=== PATIENT | female | born 1995 | race Caucasian/White ===

== ENCOUNTER 2023-05-17 10:30 | Emergency (ER) | payer OTHER, SELFPAY ==
--- NOTE | ~2023-05-17 | US_ITS ---
EXAMINATION: ULTRASOUND PELVIC, COMPLETE CLINICAL INFORMATION: Positive test. Vaginal bleeding. COMPARISON: None. TECHNIQUE: Transvaginal: Used to better visualize pelvic structures Transabdominal: Not adequate for visualization Spectral Doppler and color Doppler exam was utilized. LMP: 04/10/2023. Gestational age by LMP is 5 weeks 2 days. OSCAR 01/15/2024 Beta-hCG 137 05/17/2023 FINDINGS: UTERUS: No intrauterine gestational sac or fluid collection. Endometrial thickness 0.8 cm. ADNEXA: Ovarian vascularity:Doppler demonstrates both arterial and venous vascular flow in the right and left ovary. No evidence of ovarian torsion. Right Ovary: 3 x 1.6 x 1.9 cm. 1.2 cm proximal luteum cyst. Left Ovary: 3.1 x 1.3 x 1.8 cm. Cul-de-sac: No Fluid US/US OB pelvic and transvaginal IMPRESSION: No intrauterine gestation. Ectopic cannot be excluded. Consider follow-up serial beta-HCG levels and follow-up ultrasound in 2-3 weeks.
[2023-05-17 10:46] VITALS: BP 109/45; PULSE 86; RESP 16; TEMP 37.4; O2SAT 100; BMI 20.5
[2023-05-17 11:12] LABS: Hematocrit 37.4 % (37.0-47.0); Hemoglobin 12.2 g/dl (12.0-16.0); Mean Corpuscular HGB Conc 32.6 g/dl (31.0-35.0); Mean Corpuscular Hemoglobin 29.6 pg (27.0-33.0); Mean Corpuscular Volume 90.8 fL (80.0-98.0); Mean Platelet Volume 10.4 fL (9.4-12.3); Platelet Count 215 X10*3/uL (160-400); Red Blood Count 4.12 X10*6/uL (4.20-5.50); Red Cell Distribution Width 12.7 % (11.0-16.0); White Blood Count 5.5 X10*3/uL (4.8-10.8)
[2023-05-17 11:34] LABS: Alanine Aminotransferase 14 U/L (0-31); Alkaline Phosphatase 44 U/L (39-117); Anion Gap 11 (12-20); Aspartate Amino Transferase 19 U/L (5-31); Bilirubin Total 0.4 mg/dL (0.0-1.0); Blood Urea Nitrogen 14 mg/dL (9-16); Calcium 9.7 mg/dL (8.4-10.2); Carbon Dioxide 23 mmol/L (22-29); Chloride 108 mmol/L (96-108); Creatinine Clr Calc Pharmacy 88.4; Estimated Glomerular Filt Rate > 60; Glucose Random 79 mg/dL (60-115); HCG Quantitative 194 mIU/mL; Potassium 4.5 mmol/L (3.3-5.1); Sodium 137 mmol/L (135-145); Total Protein 6.8 g/dL (6.5-8.0)
[2023-05-17 14:20] VITALS: BP 111/64; PULSE 84; RESP 18; O2SAT 100
[2023-05-17 14:45] LABS: Appearance Urine Clear; Color Urine Yellow; Glucose Urine UA Negative (Negative); Leukocyte Esterase Urine Negative (Negative); Nitrite Urine Negative (Negative); PH 5.5 (5.0-9.0); Specific Gravity - Urine >= 1.030 (1.005-1.025); Urine Blood Negative (Negative); Urine Ketones Negative (Negative); Urine Protein Negative (Neg-Trace)
--- NOTE | 2023-05-17 16:19 | ED.PREGNANCY ---
HPI - General Chief complaint: Vaginal Bleeding Stated complaint: Spotting 3-4Weeks Time Seen by Provider: 05/17/23 14:19 Source: patient Mode of arrival: ambulatory Limitations: no limitations History of Present Illness HPI Narrative: 28 year old female w/ no significant pmhx presents to the ED today w/ complaints of spotting since this morning. Her last known menstrual cycle was 04/10. She took a urine test on 05/13 that was positive. she reports this is the 1st time she has ever been she has never been in the past and never had an miscarriage or . She is . Denies trauma/injury and STDs. She states the spotting has been persistent throughout the course of the day and was present in her underwear this AM & the toilet paper when she wipes, she also states that the color of the blood has darkened throughout the day. She denies any fever, chills, nausea, vomiting, abdominal pain, Back pain, passing of clots, or profuse amounts of bleeding. MD Complaint: vaginal bleeding Onset (ago): hour(s) Pain Consistency: constant Associated symptoms: denies other symptoms Vaginal discharge: none Vaginal bleeding: light Date of Last Menstrual Period: 04/10/23 Patient : Yes care: none Related Data : 1 Para: 0 Total number of abortions (spontaneous and elective): 0 Allergies Allergy/AdvReac Type Severity Reaction Status Date / Time No Known Allergies Allergy Unverified 05/17/23 10:46 Review of Systems Review of Systems: Constitutional : No Fever, No Chills ENT/Mouth : No sore throat, No Rhinorrhea Cardiovascular : No Chest Pain, No SOB Respiratory : No Cough, No Sputum, No Wheezing Gastrointestinal : No Nausea, No Vomiting, No Diarrhea, No abdominal pain, Genitourinary : (+) irregular bleeding, No Dysuria, No Urinary Frequency, No pelvic pain Musculoskeletal : No Myalgias Skin : No rash Neuro : No Weakness, No Headache Yes all other systems are reviewed and are negative PMFSH Past Medical History Attestation statement: The following information was validated with the patient. Source: old records reviewed and nursing notes reviewed : 1 Para: 0 Total number of abortions (spontaneous and elective): 0 Date of Last Menstrual Period: 04/10/23 Social History Social History Advance Directives: No Advance Directives Information Provided: No Patient : Yes Physical Exam Vital Signs: Vital Signs: Last Vital Signs Temp 99.4 F 05/17/23 10:46 Pulse 84 05/17/23 14:20 Resp 18 05/17/23 14:20 BP 111/64 05/17/23 14:20 Pulse Ox 100 05/17/23 14:20 O2 Del Method Room Air 05/17/23 14:20 BMI result Body Mass Index 20.5 vital signs have been reviewed as normal and appeared to be correct. Blood pressure normal. Heart rate normal. Respiration rate normal. Temperature normal. Oxygen saturation normal. Appearance: Alert. Oriented X3. No acute distress. Head: Normal external exam. Normocephalic. Atraumatic. Eyes: PERRLA. EOMI. Conjunctiva and sclera normal. Eyelids normal. Respiratory: No respiratory distress. Painless inspiration. Breath sounds normal. Abdomen: Soft and nontender. : Supervised by David POMPA. (+) maroon colored vaginal discharge noted. Normal external appearance of urethra. No lesions/lacerations or tenderness noted. Speculum exam normal appearance/palpation of vagina. Otherwise no vaginal erythema. No foreign bodies noted. No active bleeding noted. No tissue present in vagina. No vaginal mass noted. No vaginal swelling noted. Normal appearance of cervix. Cervical os is closed. No cervical lesion/mass. No Bartholin cyst noted. No cervical motion tenderness noted. Skin: Skin warm and dry. Normal skin color. Normal skin turgor. No rashes/lesions/lacerations noted. Extremities: No lower extremity edema. Extremities exhibit normal range of motion. Extremities nontender. Neuro: Oriented X 3. No motor deficit. No sensory deficit. Reflexes normal. Course Course Course Narrative: patient is well appearing, non-toxic, and vital signs are reassuring. Physical exam reveals scant amount of vaginal bleeding without CMT or adnexal tenderness/enlargement. Lab work is reassuring with no signs of anemia, infection, electrolyte abnormality or bleeding tendency. Urinalysis only shows large blood, will wait for urine culture. ultrasound was unable to see into urine unable to rule out ectopic . Labs reviewed and labs are within normal limits. Beta quant is 194. Pending gonorrhea/ chlamydia/ bacterial vaginosis/ Trichomonas and yeast at this time although patient does not have any thoughts of this and she does not have any other symptoms other than the vaginal bleeding therefore will await results. patient is a positive for blood type. I discussed this case with OBGYN Dr. Simpson review reported that the patient can be discharged and instructions to return in 48 hours for repeat evaluation in the ER he does want her to check in as an ER patient for repeat evaluation and serum quant levels. Then she can follow up with him sometime next week. Patient will be discharged home with diagnosis of metrorrhagia and dysfunctional uterine bleeding. Medical Decision Making Medical Decision Making [facility] Narrative: 28 year old female w/ no significant pmhx presents to the ED today w/ complaints of spotting since this morning. On exam her VSS and NAD, no signs of trauma or injury noted, and no red flag signs/symptoms. We discussed the possibility of this being normal spotting vs. a threatened . Low likelihood of an STD per pt but swabs were still sent out.?Unlikely an ectopic , completed , or an inevitable . Plan: Serum HCG in 48h, establish care & follow up w/ OBGYN, STD testing Differential Diagnosis Differential Diagnoses: The differential diagnosis associated with the presentation includes see above/course Consult Healthcare Provider Management of the patient was discussed with: Viscose Cellar Charge Hand ( OBGYN Dr. Simpson ) Lab Data [facility] Lab Attestation statement: I reviewed the patient's lab results. 05/17/23 11:04 05/17/23 11:04 Labs: Lab Results 05/17/23 05/17/23 05/17/23 Range/Units 11:04 11:04 11:04 WBC 5.5 (4.8-10.8) X10*3/uL RBC 4.12 L (4.20-5.50) X10*6/uL Hgb 12.2 (12.0-16.0) g/dl Hct 37.4 (37.0-47.0) % MCV 90.8 (80.0-98.0) fL MCH 29.6 (27.0-33.0) pg MCHC 32.6 (31.0-35.0) g/dl RDW 12.7 (11.0-16.0) % Plt Count 215 (160-400) X10*3/uL MPV 10.4 (9.4-12.3) fL Absolute Nucleated RBC 0.000 (0.0-0.012) X10*3/uL Nucleated RBC % (auto) 0.0 (0.0-0.2) /100WBC Sodium 137 (135-145) mmol/L Potassium 4.5 (3.3-5.1) mmol/L Chloride 108 (96-108) mmol/L Carbon Dioxide 23 (22-29) mmol/L Anion Gap 11 L (12-20) BUN 14 (9-16) mg/dL Creatinine 0.81 (0.5-1.4) mg/dL Estim Creat Clear Calc 88.4 Estimated GFR > 60 Random Glucose 79 (60-115) mg/dL Calcium 9.7 (8.4-10.2) mg/dL Total Bilirubin 0.4 (0.0-1.0) mg/dL AST 19 (5-31) U/L ALT 14 (0-31) U/L Alkaline Phosphatase 44 (39-117) U/L Total Protein 6.8 (6.5-8.0) g/dL Albumin 4.0 (3.5-5.0) g/dL Beta HCG, Quant 194 mIU/mL Urine Color Urine Appearance Urine pH (5.0-9.0) Ur Specific [place] (1.005-1.025) Urine Protein (Neg-Trace) mg/dL Urine Glucose (UA) (Negative) mg/dL Urine Ketones (Negative) mg/dL Urine Blood (Negative) Urine Nitrite (Negative) Ur Leukocyte Esterase (Negative) Blood Type A Positive 05/17/23 Range/Units 14:23 WBC (4.8-10.8) X10*3/uL RBC (4.20-5.50) X10*6/uL Hgb (12.0-16.0) g/dl Hct (37.0-47.0) % MCV (80.0-98.0) fL MCH (27.0-33.0) pg MCHC (31.0-35.0) g/dl RDW (11.0-16.0) % Plt Count (160-400) X10*3/uL MPV (9.4-12.3) fL Absolute Nucleated RBC (0.0-0.012) X10*3/uL Nucleated RBC % (auto) (0.0-0.2) /100WBC Sodium (135-145) mmol/L Potassium (3.3-5.1) mmol/L Chloride (96-108) mmol/L Carbon Dioxide (22-29) mmol/L Anion Gap (12-20) BUN (9-16) mg/dL Creatinine (0.5-1.4) mg/dL Estim Creat Clear Calc Estimated GFR Random Glucose (60-115) mg/dL Calcium (8.4-10.2) mg/dL Total Bilirubin (0.0-1.0) mg/dL AST (5-31) U/L ALT (0-31) U/L Alkaline Phosphatase (39-117) U/L Total Protein (6.5-8.0) g/dL Albumin (3.5-5.0) g/dL Beta HCG, Quant mIU/mL Urine Color Yellow Urine Appearance Clear Urine pH 5.5 (5.0-9.0) Ur Specific [place] >= 1.030 H (1.005-1.025) Urine Protein Negative (Neg-Trace) mg/dL Urine Glucose (UA) Negative (Negative) mg/dL Urine Ketones Negative (Negative) mg/dL Urine Blood Negative (Negative) Urine Nitrite Negative (Negative) Ur Leukocyte Esterase Negative (Negative) Blood Type Independent Interpretation I performed an independent interpretation of an: Ultrasound Interpretation: Ultrasound reviewed by myself this is my independent interpretation agreeable radiology report Radiology Impression Discussion of test interpretation with radiology: I have reviewed the radiologist's reading. Radiologist Impression: [place] [id number] Ultrasound Report Signed Patient: Juan Luis Mendoza MR#: [id number] : 1995 Acct:[id number] Age/Sex: 28 / F ADM Date: 05/17/23 Loc: HO.ED Attending Dr: Ordering Physician: Ana Quiñonez Date of Service: 05/17/23 Procedure(s): US OB pelvic and transvaginal Accession Number(s): [id number] cc: Ana Quiñonez~ EXAMINATION: ULTRASOUND PELVIC, COMPLETE CLINICAL INFORMATION: Positive test. Vaginal bleeding. COMPARISON: None. TECHNIQUE: Transvaginal: Used to better visualize pelvic structures Transabdominal: Not adequate for visualization Spectral Doppler and color Doppler exam was utilized. LMP: 04/10/2023. Gestational age by LMP is 5 weeks 2 days. OSCAR 01/15/2024 Beta-hCG 137 05/17/2023 FINDINGS: UTERUS: No intrauterine gestational sac or fluid collection. Endometrial thickness 0.8 cm. ADNEXA: Ovarian vascularity:Doppler demonstrates both arterial and venous vascular flow in the right and left ovary. No evidence of ovarian torsion. Right Ovary: 3 x 1.6 x 1.9 cm. 1.2 cm proximal luteum cyst. Left Ovary: 3.1 x 1.3 x 1.8 cm. Cul-de-sac: No Fluid US/US OB pelvic and transvaginal IMPRESSION: No intrauterine gestation. Ectopic cannot be excluded. Consider follow-up serial beta-HCG levels and follow-up ultrasound in 2-3 weeks. External Record Review External record reviewed: Inpatient record, Office record, Outpatient record, Prior outpatient labs, Prior outpatient radiology, Primary care record and Outside ED record all prior lab/ imaging/notes that are accessible in our system reviewed by myself Discharge Plan Discharge Clinical Impression: Vaginal bleeding, Threatened , Positive blood test Patient Disposition: Home, Self-Care Instructions: Threatened Miscarriage (ED), (ED) Additional Instructions: we need you to return back on Saturday for repeat evaluation and serum quant you will need to check in as an ER patient Dr. Simpson to be evaluated by provider. If he develops any fevers, abdominal pain, vaginal discharge or worsening vaginal bleeding or any dizziness you will need to return before Saturday otherwise return on Saturday Referrals: Ana Quiñonez PA [Emergency Midlevel Provider] - 05/19/23 8:00 am (You will need to return on Saturday for repeat evaluation and serum quant levels you will need to check in to be evaluated by an actual provider per Dr. Simpson he wants to to be evaluated again) Stand Alone Forms: Work/School Release
[2023-05-17 17:31] VITALS: BP 108/69; PULSE 88; RESP 16; O2SAT 99
[2023-05-17 18:12] LABS: CT PCR NOT DETECTED (Not Detect.); NG PCR NOT DETECTED (Not Detect.)
--- NOTE | 2023-05-17 18:45 | PM.GYNCN ---
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 The patient had a positive urine test on 05/13.? No other associated symptoms no pelvic pain or vaginal discharge or any other concerns. 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0-9.0) Ur Specific [place] >= 1.030 H (1.005-1.025) Urine Protein Negative (Neg-Trace) mg/dL Urine Glucose (UA) Negative (Negative) mg/dL Imaging US - abdomen: Radiologist's impression: ITS Impressions Pelvic/Transvag US 05/17/23 14:52 IMPRESSION: No intrauterine gestation. Ectopic cannot be excluded. Consider follow-up serial beta-HCG levels and follow-up ultrasound in 2-3 weeks. Assessment and Plan (1) Spotting in first trimester: Status: Acute Plan The following was discussed with KIRSTIE Thomas: Differential diagnosis includes early , SAB IUP or ectopic. Recommend GC/chlamydia with BV panel and Trichomonas to be collected, HCG and follow-up emergency room visit in 48 hours. SAB/ectopic warnings to be given to the patient, she is to come back to emergency room in case of vaginal bleeding and or pelvic pain. Time Spent With Patient Time: Total time managing care of this patient today ____ minutes.
[2023-05-18 10:35] LABS: BV Int Neg Control Negative (Negative); BV Int Pos Control Positive (Positive)
== END 2023-05-17 17:35 | disposition home or self-care (01) ==
PROVIDERS: Physician Assistant Medical; Emergency Provider Emergency Medicine Emergency Medical Services; PCP Nurse Practitioner Family
DX: O26.851 Spotting complicating pregnancy, first trimester (principal); O20.0 Threatened abortion; O26.891 Other specified pregnancy related conditions, first trimester; N89.8 Other specified noninflammatory disorders of vagina; Z3A.01 Less than 8 weeks gestation of pregnancy
CPT/HCPCS: 0353U; 36415; 76801; 76817; 80053; 81003; 84702; 85027; 86900; 86901; 87480; 87510; 87660; 99284

== ENCOUNTER → 2023-05-17 15:13 | Outpatient (BNV) | payer OTHER, SELFPAY | PROVIDERS: Emergency Provider Emergency Medicine Emergency Medical Services; PCP Nurse Practitioner Family; Visit Provider Obstetrics & Gynecology | DX: O26.851 Spotting complicating pregnancy, first trimester (principal) | CPT/HCPCS: 99283 ==

== ENCOUNTER 2023-05-19 09:02 | Outpatient (REF) | payer OTHER, SELFPAY ==
[2023-05-19 09:59] LABS: HCG Quantitative 79 mIU/mL
== END 2023-05-19 09:03 | disposition home or self-care (01) ==
LOC: HO.LAB 09:02
PROVIDERS: Emergency Medicine Emergency Medical Services; Visit Provider Obstetrics & Gynecology
DX: O26.851 Spotting complicating pregnancy, first trimester (principal)
CPT/HCPCS: 36415; 84702

== ENCOUNTER 2023-05-20 18:46 | Emergency (ER) | payer OTHER, SELFPAY ==
[2023-05-20 19:11] VITALS: BP 114/71; PULSE 84; RESP 18; TEMP 37.2; O2SAT 100; BMI 19.1
--- NOTE | 2023-05-20 19:13 | ED.FEMALEGU ---
HPI - Female Genitourinary General Chief complaint: Vaginal Bleeding Stated complaint: vaginal bleeding,cramping Time Seen by Provider: 05/20/23 23:56 Source: patient Mode of arrival: ambulatory Limitations: no limitations History of Present Illness HPI Narrative: Patient 28 years old primary about 5 weeks 5 days was seen here on 05/17 for vaginal spotting, hCG was 194, no IUP seen on ultrasound, spotting continues and now patient bleeding heavy with blood clots HCG done on 05/19 was 79 and today was 51 complaining of lower abdominal cramping Related Data Previous Rx's Medication Instructions Recorded tramadol 50 mg tablet 50 mg PO Q6H PRN pain #20 tabs 05/21/23 Allergies Allergy/AdvReac Type Severity Reaction Status Date / Time No Known Allergies Allergy Verified 05/20/23 19:16 Review of Systems Review of Systems: Yes all other systems are reviewed and are negative [facility] Social History Social History Alcohol intake: never Advance Directives: No Advance Directives Information Provided: Yes Physical Exam Vital Signs: Vital Signs: Last Vital Signs Temp 98.6 F 05/21/23 00:02 Pulse 80 05/21/23 00:02 Resp 20 05/21/23 00:02 BP 123/69 05/21/23 00:02 Pulse Ox 100 05/21/23 00:02 O2 Del Method Room Air 05/21/23 00:02 BMI result Body Mass Index 19.1 Appearance: Alert. Oriented X3. No acute distress. Eyes: no pallor ENT: Pharynx normal. Oral Mucosa moist Neck: Normal inspection. Neck supple. CVS: Normal heart rate and rhythm. Pulses normal. Respiratory: No respiratory distress. Equal air entry bilateral, Abdomen: Soft mild suprapubic tenderness Bowel sounds are present, no mass palpable, Skin: Skin warm and dry. Normal skin color. Normal skin turgor. Neuro: Oriented X 3. No motor deficit. Course Course Course Narrative: RME: 28 year old female , LMP on 04/10, c/o spotting since Saturday now with dark red bleeding x today w/ cramping & nausea. denies d/c, vomiting. Patient was seen & tx in our ED 05/17 for similar sx, US at that time that did not see IUP, HCG was 194, & repeat HCG on 05/20 was 79. Labs, UA, repeat HCG ordered Full HPI, ROS and PE to be performed by primary ED provider. Medical Decision Making Medical Decision Making [facility] Narrative: Patient with decreasing hCG level from 194 to 51 in 3 days with vaginal bleeding likely a spontaneous no IUP seen 4 days ago no significant abdominal pain patient will be discharged advised to follow with Ob[facility] Lab Data MDM Lab Attestation statement: I reviewed the patient's lab results. 05/20/23 19:30 05/20/23 19:30 Labs: Lab Results 05/20/23 05/20/23 Range/Units 19:30 19:30 WBC 6.8 (4.8-10.8) X10*3/uL RBC 3.77 L (4.20-5.50) X10*6/uL Hgb 11.6 L (12.0-16.0) g/dl Hct 34.8 L (37.0-47.0) % MCV 92.3 (80.0-98.0) fL MCH 30.8 (27.0-33.0) pg MCHC 33.3 (31.0-35.0) g/dl RDW 12.7 (11.0-16.0) % Plt Count 216 (160-400) X10*3/uL MPV 10.6 (9.4-12.3) fL Immature Gran % (Auto) 0.4 (0.0-0.4) % Neut % (Auto) 66.5 (45-73) % Lymph % (Auto) 23.7 (20-40) % Atkinson % (Auto) 8.1 (2-11) % Eos % (Auto) 0.9 (0-4) % Baso % (Auto) 0.4 (0-2) % Lymph # (Auto) 1.6 (1.2-4.9) X10*3/uL [place]kinson # (Auto) 0.6 (0.1-1.2) X10*3/uL Eos # (Auto) 0.1 (0.0-0.4) X10*3/uL Baso # (Auto) 0.0 (0.0-0.2) X10*3/uL Abs Immat Gran (auto) 0.03 (0.00-0.03) X10*3/uL Absolute Neuts (auto) 4.5 (2.0-8.3) x10*3/uL Absolute Nucleated RBC 0.000 (0.0-0.012) X10*3/uL Nucleated RBC % (auto) 0.0 (0.0-0.2) /100WBC Sodium 141 (135-145) mmol/L Potassium 4.0 (3.3-5.1) mmol/L Chloride 111 H (96-108) mmol/L Carbon Dioxide 23 (22-29) mmol/L Anion Gap 11 L (12-20) BUN 14 (9-16) mg/dL Creatinine 0.81 (0.5-1.4) mg/dL Estim Creat Clear Calc 82.1 Estimated GFR > 60 Random Glucose 84 (60-115) mg/dL Calcium 8.9 D (8.4-10.2) mg/dL Lipase 37 (8-78) U/L Beta HCG, Quant 51 mIU/mL Discharge Plan Discharge Clinical Impression: Spontaneous miscarriage Patient Disposition: Home, Self-Care Instructions: Miscarriage (ED) Additional Instructions: Likely you have miscarriage Bleeding will continue the next 2 - 3 days with abdominal cramps Follow-up with OB G if any concerns Pain medication as prescribed Prescriptions: New tramadol 50 mg tablet 50 mg PO Q6H PRN (Reason: pain) Qty: 20 0RF
[2023-05-20 19:35] LABS: MANUAL DIFF FLAG NO
[2023-05-20 19:51] LABS: Basophils Percent Auto 0.4 % (0-2); Eosinophils Absolute Auto 0.1 X10*3/uL (0.0-0.4); Eosinophils Percent Auto 0.9 % (0-4); Hematocrit 34.8 % (37.0-47.0); Hemoglobin 11.6 g/dl (12.0-16.0); Imm Gran Abs Auto 0.03 X10*3/uL (0.00-0.03); Imm Gran Pct Auto 0.4 % (0.0-0.4); Lymphocytes Absolute Auto 1.6 X10*3/uL (1.2-4.9); Lymphocytes Percent Auto 23.7 % (20-40); Mean Corpuscular HGB Conc 33.3 g/dl (31.0-35.0); Mean Corpuscular Hemoglobin 30.8 pg (27.0-33.0); Mean Corpuscular Volume 92.3 fL (80.0-98.0); Mean Platelet Volume 10.6 fL (9.4-12.3); Monocytes Absolute Auto 0.6 X10*3/uL (0.1-1.2); Monocytes Percent Auto 8.1 % (2-11); Neutrophils Absolute Auto 4.5 x10*3/uL (2.0-8.3); Neutrophils Percent Auto 66.5 % (45-73); Platelet Count 216 X10*3/uL (160-400); Red Blood Count 3.77 X10*6/uL (4.20-5.50); Red Cell Distribution Width 12.7 % (11.0-16.0); White Blood Count 6.8 X10*3/uL (4.8-10.8)
[2023-05-20 19:56] LABS: Anion Gap 11 (12-20); Blood Urea Nitrogen 14 mg/dL (9-16); Calcium 8.9 mg/dL (8.4-10.2); Carbon Dioxide 23 mmol/L (22-29); Chloride 111 mmol/L (96-108); Creatinine Clr Calc Pharmacy 82.1; Estimated Glomerular Filt Rate > 60; Glucose Random 84 mg/dL (60-115); Lipase 37 U/L (8-78); Sodium 141 mmol/L (135-145)
[2023-05-20 19:57] LABS: HCG Quantitative 51 mIU/mL
[2023-05-21 00:02] VITALS: BP 123/69; PULSE 80; RESP 20; TEMP 37; O2SAT 100
[2023-05-21] MEDS: traMADoL HCL 50 MG TABLET PO (00:44)
== END 2023-05-21 00:53 | disposition home or self-care (01) ==
PROVIDERS: Physician Assistant; Emergency Provider Internal Medicine
DX: O03.9 Complete or unspecified spontaneous abortion without complication (principal); R10.2 Pelvic and perineal pain
CPT/HCPCS: 36415; 80048; 83690; 84702; 85025; 99283

== ENCOUNTER 2023-05-21 09:46 | Outpatient (REF) | payer OTHER, SELFPAY ==
[2023-05-21 11:02] LABS: HCG Quantitative 44 mIU/mL
== END 2023-05-21 09:47 | disposition home or self-care (01) ==
LOC: HO.LAB 09:46
PROVIDERS: PCP Nurse Practitioner Family; Visit Provider Obstetrics & Gynecology
DX: O26.851 Spotting complicating pregnancy, first trimester (principal)
CPT/HCPCS: 36415; 84702; 99212

== ENCOUNTER 2023-05-21 14:06 | Outpatient (AMB) | payer OTHER, SELFPAY ==
[2023-05-21 14:15] VITALS: BP 94/58; BMI 20.1
--- NOTE | 2023-05-21 14:15 | MHC.OFFVIS ---
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 The patient went to the emergency room on 05/17 at 5 in 5 weeks of gestation complaining of vaginal spotting. hCG was 194,? no IUP seen on ultrasound, the patient was seen in the emergency room on 05/20 after continuous spotting and vaginal bleeding heavy with blood clots, HCG done on 05/19 was 79 and repeated on 05/20 was 51 complaining of lower abdominal cramping. GC and chlamydia with BV panel were negative. Blood type is A positive The patient is doing well, minimal pelvic cramping no pain, and vaginal bleeding changing 1 pad overnight. H&H done yesterday at 18:30 was 11.6/24.8 [facility] Social History Alcohol intake: never Female Reproductive History Menstrual Date of last menstrual period: 04/10/23 control method: none Total pregnancies: 1 Ab spontaneous: 1 Date of last pap smear: 02/05/17 (negative) Review of Systems Const All systems reviewed & are unremarkable except as noted in HPI and below Physical Exam Vital Signs: Last Vital Signs BP 94/58 L 05/21/23 14:15 BMI result Body Mass Index 20.1 General: Yes no CVA tenderness External Female Exam: normal external appearance and normal appearance of the urethra Speculum Exam - Vagina: normal appearance of the vagina, normal palpation, no lesions and no masses Speculum Exam - Cervix: normal appearance of the cervix, normal palpation, no lesions, no masses, nontender and Other cervical findings present (Close cervix, no evidence of active vaginal bleeding) Bimanual exam- vagina & uterus: normal bimanual exam, normal palpation, uterine size normal, normal palpation, uterine shape normal, No Cervical tenderness present and non-tender Bimanual Exam- Adnexa, other: normal adnexae Back/Spine/Pelvis Back: no CVA tenderness Assessment & Plan Assessment & Plan (1) Spontaneous miscarriage: Code(s): O03.9 - Complete or unspecified spontaneous without complication Plan: Discussed with the patient the results of her hCG dropping, consistent with spontaneous . Signs and symptoms of SAB and ectopic were given to the patient she is to call or go to the emergency room in case of heavy vaginal bleeding, pelvic pain, fever above 100.4, hCG to be repeated in 48 hours and and schedule follow-up appointment afterwards. All questions answered, the patient verbalized understanding and agreed with the plan. Orders: Orders HCG Quantitative 2 Days O03.9 - Complete or unspecified spontaneous without complication Coding Level of Care Code Est Pt Level 3 (92639) Diagnoses Spontaneous miscarriage O03.9
== END 2023-05-21 14:53 | disposition home or self-care (01) ==
LOC: HO.HWS 14:06
PROVIDERS: PCP Nurse Practitioner Family; Visit Provider Obstetrics & Gynecology
DX: O03.9 Complete or unspecified spontaneous abortion without complication (principal)
CPT/HCPCS: 99213

== ENCOUNTER 2023-05-21 14:35 | Outpatient (REF) | payer OTHER, SELFPAY | END 2023-05-21 14:36 | disposition home or self-care (01) | LOC: HO.LNP 14:35 | PROVIDERS: Visit Provider Obstetrics & Gynecology | DX: Z13.89 Encounter for screening for other disorder (principal) ==

== ENCOUNTER 2023-05-23 08:00 | Outpatient (REF) | payer OTHER, SELFPAY ==
[2023-05-23 09:46] LABS: HCG Quantitative 23 mIU/mL
== END 2023-05-23 08:01 | disposition home or self-care (01) ==
LOC: HO.LAB 08:00
PROVIDERS: PCP Nurse Practitioner Family; Visit Provider Obstetrics & Gynecology
DX: O03.9 Complete or unspecified spontaneous abortion without complication (principal)
CPT/HCPCS: 36415; 84702; 99212

== ENCOUNTER 2023-05-23 08:03 | Outpatient (REF) | payer OTHER, SELFPAY | END 2023-05-23 08:04 | disposition home or self-care (01) | LOC: HO.LNP 08:03 | PROVIDERS: Visit Provider Obstetrics & Gynecology | DX: Z13.89 Encounter for screening for other disorder (principal) ==

== ENCOUNTER 2023-05-23 11:38 | Outpatient (AMB) | payer OTHER, SELFPAY ==
[2023-05-23 11:41] VITALS: BP 100/60; BMI 20.1
--- NOTE | 2023-05-23 11:41 | MHC.OFFVIS ---
Intake Vital Signs 05/23/23 11:41 Height 5 ft 5 in Weight 121 lb BMI 20.1 BP 100/60 Intake Visit Reasons: HCG follow up Allergies No Known Allergies Allergy (Verified 05/23/23 11:42) HPI HPI Comments History of Present Illness Details Presenting for follow-up with no complaints. Vaginal bleeding and pelvic cramping has resolved. HCG is down to 22 today. Blood type A positive, no other concerns PFS Social History Alcohol intake: never Review of Systems Const All systems reviewed & are unremarkable except as noted in HPI and below Reports as per HPI and Reports no additional complaints GI Reports no additional complaints Reports no additional complaints Physical Exam Vital Signs: Last Vital Signs BP 100/60 05/23/23 11:41 BMI result Body Mass Index 20.1 Assessment & Plan Assessment & Plan (1) Complete miscarriage: Code(s): O03.9 - Complete or unspecified spontaneous without complication Plan: Discussed with the patient the results of the hCG continuously dropping and her symptoms resolved. Signs and symptoms of incomplete were discussed with the patient, instructions given to the patient to call or go to the emergency in case of heavy bleeding pelvic cramping, fever above 100.4, repeat hCG in 2 weeks and follow-up afterwards. Offered the patient different options of control, the patient declined at this time would like to think about and get back to us. Instructions given the patient to schedule a 2 week hCG follow-up appointment. All questions answered, the patient verbalized understanding Orders: Orders HCG Quantitative 2 Weeks O03.9 - Complete or unspecified spontaneous without complication Coding Level of Care Code Est Pt Level 3 (76994) Diagnoses Complete miscarriage O03.9
== END 2023-05-23 15:08 | disposition home or self-care (01) ==
LOC: HO.HWS 11:38
PROVIDERS: PCP Nurse Practitioner Family; Visit Provider Obstetrics & Gynecology
DX: O03.9 Complete or unspecified spontaneous abortion without complication (principal)
CPT/HCPCS: 99213

== ENCOUNTER 2023-06-14 15:00 | Outpatient (REF) | payer OTHER, SELFPAY ==
[2023-06-14 15:44] LABS: HCG Quantitative < 2 mIU/mL
== END 2023-06-14 15:01 | disposition home or self-care (01) ==
LOC: HO.LAB 15:00
PROVIDERS: Visit Provider Obstetrics & Gynecology
DX: O03.9 Complete or unspecified spontaneous abortion without complication (principal)
CPT/HCPCS: 36415; 84702

== ENCOUNTER 2023-06-17 11:03 | Outpatient (AMB) | payer OTHER, SELFPAY ==
[2023-06-17 11:10] VITALS: BP 114/64
--- NOTE | 2023-06-17 11:10 | A.OFFVIS_ITS ---
Intake Vital Signs 06/17/23 11:10 Height 5 ft 5 in Weight 120 lb BMI 20.0 BP 114/64 Intake Visit Reasons: Lab/Follow up Customer Field Representative Required: No Allergies No Known Allergies Allergy (Verified 06/17/23 11:10) Is last menstrual period known: No Post menopausal: No HPI HPI Comments History of Present Illness Details Presenting for follow-up with no complaints. No Vaginal bleeding and/or pelvic cramping HCG is down from 22 down to 0 . Blood type A positive, no other concerns [facility] Social History Alcohol intake: never Female Reproductive History Menstrual control method: none Review of Systems Const All systems reviewed & are unremarkable except as noted in HPI and below Reports as per HPI and Reports no additional complaints GI Reports no additional complaints Reports no additional complaints Physical Exam Vital Signs: Last Vital Signs BP 114/64 06/17/23 11:10 BMI result Body Mass Index 20.0 Assessment & Plan Assessment & Plan (1) Complete miscarriage: Code(s): O03.9 - Complete or unspecified spontaneous without complication Plan: Discussed with the patient the results of the hCG down to 0, the patient was reassured. Offered the patient 1 more time different options of control, the patient declined at this time would like to think about it and get back to us. All questions answered, the patient verbalized understanding Coding Level of Care Code Est Pt Level 3 (35239) Diagnoses Complete miscarriage O03.9
== END 2023-06-17 11:24 | disposition home or self-care (01) ==
PROVIDERS: PCP Nurse Practitioner Family; Visit Provider Obstetrics & Gynecology
DX: O03.9 Complete or unspecified spontaneous abortion without complication (principal)
CPT/HCPCS: 99213

== ENCOUNTER → 2023-06-17 11:03 | Outpatient (BNVA) | payer OTHER, SELFPAY | PROVIDERS: PCP Nurse Practitioner Family; Visit Provider Obstetrics & Gynecology | DX: O03.9 Complete or unspecified spontaneous abortion without complication (principal) | CPT/HCPCS: 99212 ==

== ENCOUNTER 2023-11-14 09:44 | Outpatient (REF) | payer OTHER, SELFPAY | END 2023-11-14 09:45 | disposition home or self-care (01) | LOC: HO.LNP 09:44 | PROVIDERS: PCP Nurse Practitioner Family; Visit Provider Obstetrics & Gynecology | DX: R87.612 Low grade squamous intraepithelial lesion on cytologic smear of cervix (LGSIL) (principal); Z32.02 Encounter for pregnancy test, result negative | CPT/HCPCS: 57454; 81025; 88305 ==

== ENCOUNTER 2023-11-14 09:44 | Outpatient (AMB) | payer OTHER, SELFPAY ==
[2023-11-14 09:52] VITALS: BP 114/64; BMI 19.8
--- NOTE | 2023-11-14 09:52 | A.OFFVIS_ITS ---
Intake Vital Signs 11/14/23 09:52 Height 5 ft 5 in Weight 119 lb 0.794 oz BMI 19.8 BP 114/64 Intake Visit Reasons: [facility] Counselor Required: No Information Interpreted: non-clinical & clinical Mica [employer]: Mica [employer] Present (Tonia LI) Accompanied by: Self / Same As Patient Allergies No Known Allergies Allergy (Verified 11/14/23 09:54) HPI HPI Comments History of Present Illness Details Presenting referred with abnormal Pap smear done in 09/28 showing LSIL HPV positive, HPV 16/18 negative [facility] Social History Alcohol intake: never Female Reproductive History Menstrual Date of last menstrual period: 10/22/23 Physical Exam Vital Signs: Last Vital Signs BP 114/64 11/14/23 09:52 BMI result Body Mass Index 19.8 Office Procedures Colposcopy Before the procedure was started discussed with the patient the procedure, alternatives & all the risks associated with the procedure (bleeding, infection, injury to vagina, bladder, vessels, possible need for transfusion with all its risks) then patient signed the consent UPT done in the office & negative Pap smear = LSIL/HPV positive/HPV 16/18 negative Speculum inserted, acetic acid used Colposcopy done Transformation zone seen, acetowhite lesions identified at 6+11+1 o?clock, cervical biopsies taken from 6+11+1 o?clock, ECC done afte rwards. Vaginoscopy of the upper vagina showed no evidence of any aceto-white lesions Monsel solution used for hemostasis. The patient tolerated well . At the end the patient was instructed to call if temp>100.4, abdominal pain, n/v, bleeding; The patient was given the following instructions: nothing per vagina, no intercourse or bath tub use. All questions answered the patient verbalized understanding. Instructed the patient to make an appointment in 2 weeks for follow-up This note was generated with a voice recognition program. Some errors may have been overlooked during the review of this note. Sometimes these errors may affect the content or meaning of a given sentence. 12806-Ycwgcwsst of cervix including upper vagina with biopsy and ECC Procedure code (CPT) selection complete Assessment & Plan Assessment & Plan (1) LGSIL on Pap smear of cervix: Code(s): R87.612 - Low grade squamous intraepithelial lesion on cytologic smear of cervix (LGSIL) Plan: Discussed with the patient the result of her abnormal pap, its significance, risk of progression, persistence, and regression if untreated. the false positive/negative rate being a screening test, the indication for diagnostic test -colposcopy, biopsy, endocervical curettage. Colposcopy, biopsy, ECC done, see procedure note The patient verbalized understanding and agreed with the plan, all questions answered. Orders: Orders AMB Colposcopy Today R87.612 - Low grade squamous intraepithelial lesion on cytologic smear of cervix (LGSIL) Coding Level of Care Code Procedure Only Diagnoses LGSIL on Pap smear of cervix R87.612 CPT Codes Colposcopy - CPT: 88446-Vcczoozcv of cervix including upper vagina with biopsy and ECC ([id number])
== END 2023-11-14 10:18 | disposition home or self-care (01) ==
LOC: HO.HWS 09:44
PROVIDERS: PCP Nurse Practitioner Family; Visit Provider Obstetrics & Gynecology
DX: R87.612 Low grade squamous intraepithelial lesion on cytologic smear of cervix (LGSIL) (principal); Z32.02 Encounter for pregnancy test, result negative
CPT/HCPCS: 57454

== ENCOUNTER 2023-12-05 10:10 | Outpatient (AMB) | payer OTHER, SELFPAY ==
--- NOTE | 2023-12-05 10:13 | MHC.OFFVIS ---
Intake Vital Signs 12/05/23 10:14 Height 5 ft 5 in Weight 119 lb BMI 19.8 BP 112/60 Intake Visit Reasons: colpo results Customer Advisor Required: No Allergies No Known Allergies Allergy (Verified 12/05/23 10:14) Is last menstrual period known: Yes Last menstrual period: 11/13/23 Post menopausal: No HPI HPI Comments History of Present Illness Details Presenting post colpo for follow-up. The patient is doing well with no complaints. The pathology showed the following: A. Endocervix, curettage: Inflamed endocervical tissue with reactive changes. B. Cervix, 1 o'clock, biopsy: Inflamed cervical transformation zone mucosa with reactive changes. C. Cervix, 6 o'clock, biopsy: Low grade squamous intraepithelial lesion (ANILA 1); no endocervical epithelium identified. D. Cervix, 11 o'clock, biopsy: Scant superficial fragments of endocervical and squamous epithelium with degenerative and reactive changes. COMMENT: By report, the patient has a history of a low-grade lesion on her Pap (September 2023) [facility] Social History Alcohol intake: never Female Reproductive History Menstrual Date of last menstrual period: 11/13/23 control method: none Date of last pap smear: 02/05/17 (negative) Review of Systems Const All systems reviewed & are unremarkable except as noted in HPI and below Reports as per HPI and Reports no additional complaints GI Reports no additional complaints Reports no additional complaints Physical Exam Vital Signs: Last Vital Signs BP 112/60 12/05/23 10:14 BMI result Body Mass Index 19.8 Assessment & Plan Assessment & Plan (1) Dysplasia of cervix, low grade (ANILA 1): Code(s): N87.0 - Mild cervical dysplasia Plan: Discussed with the patient the pathology results of the colposcopy biopsies & endocervical curettage ( mild dysplasia-ANILA 1). Discussed with the patient the sensitivity specificity, positive and negative predictive value in detecting cervical cancer in addition discussed the regression, persistence and progression rates. Recommended Pap smear in 12 months, if cytology is abnormal will proceed was colposcopy biopsy and endocervical curettage, if lesions gets worse or stays persistent for 2 years will proceed with loop electric excision procedure. Instructions given to the patient to schedule a co test appointment in 1 year. All questions answered the patient verbalized understanding. Coding Level of Care Code Est Pt Level 3 (76439) Diagnoses Dysplasia of cervix, low grade (ANILA 1) N87.0
[2023-12-05 10:14] VITALS: BP 112/60; BMI 19.8
== END 2023-12-05 10:19 | disposition home or self-care (01) ==
LOC: HO.HWS 10:10
PROVIDERS: PCP Nurse Practitioner Family; Visit Provider Obstetrics & Gynecology
DX: N87.0 Mild cervical dysplasia (principal)
CPT/HCPCS: 99213

== ENCOUNTER → 2023-12-05 10:10 | Outpatient (BNVA) | payer OTHER, SELFPAY | PROVIDERS: PCP Nurse Practitioner Family; Visit Provider Obstetrics & Gynecology | DX: N87.0 Mild cervical dysplasia (principal) | CPT/HCPCS: 99212 ==

== ENCOUNTER 2024-05-11 08:42 | Emergency (ER) | payer OTHER, SELFPAY ==
--- NOTE | ~2024-05-11 | US_ITS ---
EXAMINATION: US OBSTETRICAL ULTRASOUND CLINICAL INFORMATION: 3 days of light brown vaginal bleeding. Quantitative hCG 7426. Patient with history of spontaneous one year ago. COMPARISON: Obstetrical ultrasound dated 05/17/2023. TECHNIQUE: Transabdominal and transvaginal pelvic ultrasound. A transvaginal study was performed in addition to the transabdominal study which did not yield an adequate examination of the uterus and ovaries due to superimposed distended gas-filled loops of bowel. FINDINGS: UTERUS: Based on the patient's last menstrual period of 03/13/2024, a 8 week 3 day gestation is expected with estimated date of delivery of 12/18/2024. Single live intrauterine gestation is identified with a positive heartbeat of 167 bpm. The decidual reaction around the sac appears normal. No subchorionic hemorrhage is seen. Cervical length is normal, measuring approximately 3 cm. Internal os is closed. Trace amount of endocervical free fluid is noted. The gestational sac measures 1.4 cm which equals 6 weeks and 1 day. A yolk sac measuring 0.4 cm is visualized. [place]-rump length measurements average 1.5 cm which equals 7 weeks and 6 days. There is an unusual fluid-filled structure seen in the brain region, poorly characterized at this early stage. A dedicated anatomic survey was not performed on this limited obstetrical ultrasound. OVARIES: The right ovary is mildly enlarged, measuring 4.1 x 1.9 x 2.6 cm (10.2 mL volume) and demonstrates a complex 2.7 x 1.4 x 1.6 cm cyst with peripheral rim of color with Doppler imaging, consistent with a corpus luteum cyst. The left ovary measures 2.8 x 1.1 x 2.2 cm (3.4 mL volume) and appears unremarkable. Trace free fluid is seen in the cul-de-sac. US/US OB pelvic and transvaginal IMPRESSION: 1. Single live intrauterine gestation is identified with positive heartbeat of 167 bpm and average gestational age of 7 weeks and 6 days and estimated date of delivery of 12/22/2024. These dates are 4 days less advanced than expected by clinical dates. 2. Trace amount of endocervical fluid is seen, perhaps corresponding to the clinical history given of vaginal bleeding. Internal cervical os remains closed. 3. Unusual fluid-filled structure is seen in the region of the brain, incompletely evaluated on this limited obstetrical ultrasound performed for viability check. Close clinical correlation is requested. Referral to high risk maternal medicine service is recommended for detailed evaluation and appropriate follow-up. This critical result was discussed with Cody Dong 05/11/2024, 1:13 PM and it was ascertained that the content and urgency of this report was understood at the time of direct communication.
[2024-05-11 08:55] VITALS: BP 105/68; PULSE 93; RESP 18; TEMP 36.7; O2SAT 100; BMI 19.7
--- NOTE | 2024-05-11 09:00 | ED_ITS ---
HPI - General Chief complaint: Vaginal Bleeding Stated complaint: 8 weeks preg, spotting, cramps Time Seen by Provider: 05/11/24 08:53 Source: patient Mode of arrival: ambulatory Limitations: no limitations History of Present Illness ED Provider: Josemanuel ÁLVAREZ HPI Narrative: This is a 29-year-old female A2 history of cervical dysplasia, miscarriage, LSIL, presenting to the emergency department with 3 days of vaginal spotting dark brown in color. Patient reports history of miscarriage in the past about a year ago she was about 6 weeks along when she found out. Patient was scheduled to have a phone intake with [facility] today, she has been taking vitamins. No known bleeding disorders. She has not been saturating through sanitary pads or tampons. No associated abdominal pain, fevers, chills, nausea, vomiting, chest pain, shortness of breath. Related Data Home Medications ?Medication ?Instructions ?Recorded ?Confirmed No Known Home Meds 11/14/23 11/14/23 Allergies Allergy/AdvReac Type Severity Reaction Status Date / Time No Known Allergies Allergy Verified 05/11/24 08:56 Review of Systems 2 Review of Systems: Yes all other systems are reviewed and are negative PMFSH Past Medical History Attestation statement: The following information was validated with the patient. Source: old records reviewed and nursing notes reviewed Social History Social History Alcohol intake: never Smoked in Last 30 Days: No Use of substances other than those prescribed or required for medical reasons: No Advance Directives: No Advance Directives Information Provided: Yes Do you have a plan to hurt others: No Plan Patient : Yes Physical Exam 2 Vital Signs: Vital Signs: Last Vital Signs Temp 97.8 F 05/11/24 09:11 Pulse 101 H 05/11/24 09:11 Resp 20 05/11/24 09:11 BP 102/61 05/11/24 09:11 Pulse Ox 100 05/11/24 09:11 O2 Del Method Room Air 05/11/24 09:11 BMI result Body Mass Index 19.7 vss Appearance: Alert.? Oriented X3.? No acute distress.? Head: Normocephalic, atraumatic, no step-offs or deformities Eyes: Pupils equal, round and reactive to light.? CVS: Normal heart rate and rhythm.? Pulses normal.? Respiratory: No respiratory distress.? Breath sounds normal.? Abdomen: Soft and nontender.? Skin: Skin warm and dry.? Normal skin color.? Normal skin turgor.? Extremities: No lower extremity edema.? No calf ttp. 5/5 strength to bilateral upper and lower extremities Back: No midline tenderness, no C-spine tenderness, full range of motion, no CVA tenderness bilaterally Neuro: Oriented X 3.? No motor deficit.? No sensory deficit. CN 2-12 intact Course Reevaluation(s) Reevaluation #1: CBC w/a normocytic anemia. Chemistry with no acute findings needing intervention hCG 7426. UA without infection. Chlamydia, gonorrhea, Trichomonas, BV negative. Time: 12:00 Reevaluation #2: Ultrasound with single live intrauterine gestation with positive heartbeat 167 gestational age of 7 weeks and 6 days. OSCAR 12/22/2024. Trace amount of endocervical fluid is seen. Unusual fluid-filled structure in the region of the brain incompletely evaluated on this limited OB ultrasound for viability check. I did discuss this with patient patient is going to follow up with [facility]. She gave me a phone number to fax results. I will fax patient results to [facility] at this time. Educated patient on diagnosis and treatment plan, answered all question, patient verbalizes understanding. At this time patient will be discharged home, advised to return with new or worsening symptoms. Educated on worrisome signs and symptoms and when to return. At this time I feel comfortable discharge home. Time: 13:29 Medical Decision Making Medical Decision Making [facility] Narrative: 0902 This is a 29-year-old female presenting with 3 days of intermittent vaginal spotting. History of miscarriage at 6 weeks about a year ago Physical exam benign History and physical exam concerning for threatened /miscarriage vs implantation bleeding vs placenta previa. Will rule out acute blood loss anemia. Unlikely acute electrolyte abnormalities. Plan at this time labs, imaging, viral test. Differential Diagnosis Differential Diagnoses: The differential diagnosis associated with the presentation includes History and physical exam concerning for threatened /miscarriage vs implantation bleeding vs placenta previa. Will rule out acute blood loss anemia. Unlikely acute electrolyte abnormalities. Admission/Observation Consideration of admission/observation: Escalation of care including admission/observation considered Lab Data [facility] Lab Attestation statement: I reviewed the patient's lab results. 05/11/24 09:30 05/11/24 09:30 Labs: Lab Results 05/11/24 05/11/24 Range/Units 09:30 11:09 WBC 4.8 (4.8-10.8) X10*3/uL RBC 3.93 L (4.20-5.50) X10*6/uL Hgb 11.9 L (12.0-16.0) g/dl Hct 35.0 L (37.0-47.0) % MCV 89.1 (80.0-98.0) fL MCH 30.3 (27.0-33.0) pg MCHC 34.0 (31.0-35.0) g/dl RDW 12.5 (11.0-16.0) % Plt Count 202 (160-400) X10*3/uL MPV 10.1 (9.4-12.3) fL Immature Gran % (Auto) 0.2 (0.0-0.4) % Neut % (Auto) 66.1 (45-73) % Lymph % (Auto) 24.4 (20-40) % Alcorn % (Auto) 7.9 (2-11) % Eos % (Auto) 0.8 (0-4) % Baso % (Auto) 0.6 (0-2) % Lymph # (Auto) 1.2 (1.2-4.9) X10*3/uL [place] # (Auto) 0.4 (0.1-1.2) X10*3/uL Eos # (Auto) 0.0 (0.0-0.4) X10*3/uL Baso # (Auto) 0.0 (0.0-0.2) X10*3/uL Abs Immat Gran (auto) 0.01 (0.00-0.03) X10*3/uL Absolute Neuts (auto) 3.2 (2.0-8.3) x10*3/uL Absolute Nucleated RBC 0.000 (0.0-0.012) X10*3/uL Nucleated RBC % (auto) 0.0 (0.0-0.2) /100WBC PT 12.6 (11.1-13.3) SEC INR 1.0 (0.9-1.1) Sodium 138 (135-145) mmol/L Potassium 4.2 (3.3-5.1) mmol/L Chloride 106 (96-108) mmol/L Carbon Dioxide 23 (22-29) mmol/L Anion Gap 13 (12-20) BUN 15 (9-16) mg/dL Creatinine 0.80 (0.5-1.4) mg/dL Estim Creat Clear Calc 87.7 Estimated GFR > 60 Random Glucose 88 (60-115) mg/dL Calcium 9.4 (8.4-10.2) mg/dL Magnesium 2.0 (1.6-2.6) mg/dL Total Bilirubin 0.6 (0.0-1.0) mg/dL AST 21 (5-31) U/L ALT 22 (0-31) U/L Alkaline Phosphatase 47 (39-117) U/L Total Protein 7.8 (6.5-8.0) g/dL Albumin 4.5 (3.5-5.0) g/dL Beta HCG, Quant 7426 mIU/mL Urine Color Yellow Urine Appearance Clear Urine pH 6.0 (5.0-9.0) Ur Specific [place] 1.025 (1.005-1.025) Urine Protein Negative (Neg-Trace) mg/dL Urine Glucose (UA) Negative (Negative) mg/dL Urine Ketones Negative (Negative) mg/dL Urine Blood Negative (Negative) Urine Nitrite Negative (Negative) Ur Leukocyte Esterase Negative (Negative) Chlam trachomat DNA PCR NOT DETECTED (Not Detect.) N.gonorrhoeae DNA (PCR) NOT DETECTED (Not Detect.) T. vaginalis (PCR) NOT DETECTED (Not Detect) Bact Vaginosis (PCR) NEGATIVE (Negative) C. krusei/glabrata (PCR) NOT DETECTED (Not Detect) Mary group (PCR) NOT DETECTED (Not Detect) Blood Type A Positive Independent Interpretation I performed an independent interpretation of an: Ultrasound (US/US OB pelvic and transvaginal IMPRESSION: 1. Single live intrauterine gestation is identified with positive heartbeat of 167 bpm and average gestational age of 7 weeks and 6 days and estimated date of delivery of 12/22/2024. These dates are 4 days less advanced than expected by clinical tip) Radiology Impression Discussion of test interpretation with radiology: I have reviewed the radiologist's reading. Prescription Management I considered prescription management with: Other (miscarriage, lsil, estelle 1 ) Critical Care Time Critical Care Time Critical Care Time: No Discharge Plan Discharge Clinical Impression: Vaginal bleeding during , Intrauterine Patient Disposition: Home, Self-Care Instructions: (ED), at 7 to 10 Weeks (ED) Additional Instructions: Take your medications as prescribed. If you were prescribed antibiotics today, it is important that you take your medication to their entirety, do not skip any doses, do not finish them early. Follow-up with your primary care provider this week. Return to the emergency department with new or worsening symptoms. Such as fevers, chills, chest pain, shortness of breath, nausea, vomiting, dizziness, headache, vision changes, lethargy In case of emergency call 911 Return with new or worsening vaginal bleeding or if your bleeding through more than 2 pads an hour. Please follow-up with [facility]. Radiologist was concerned that there may be unusual fluid in the fetus is head, concerning for sister malformation however it is too soon to know. Please follow-up with OB as soon as possible. US/US OB pelvic and transvaginal IMPRESSION: 1. Single live intrauterine gestation is identified with positive heartbeat of 167 bpm and average gestational age of 7 weeks and 6 days and estimated date of delivery of 12/22/2024. These dates are 4 days less advanced than expected by clinical dates. 2. Trace amount of endocervical fluid is seen, perhaps corresponding to the clinical history given of vaginal bleeding. Internal cervical os remains closed. 3. Unusual fluid-filled structure is seen in the region of the brain, incompletely evaluated on this limited obstetrical ultrasound performed for viability check. Close clinical correlation is requested. Referral to high risk maternal medicine service is recommended for detailed evaluation and appropriate follow-up. This critical result was discussed with Cody Dong 05/11/2024, 1:13 PM and it was ascertained that the content and urgency of this report was understood at the time of direct communication. Prescriptions: No Action No Known Home Meds Referrals: Isabelle Tellez NP [Primary Care Provider] - 2 days Print Language: Chadian
[2024-05-11 09:11] VITALS: BP 102/61; PULSE 101; RESP 20; TEMP 36.6; O2SAT 100
--- NOTE | 2024-05-11 09:27 | PC.NURSE ---
Pt presents to ED from home, reports approx 8 weeks , had scan at 6 weeks to confirm. Reports cramping starting this morning, LLQ area, intermittent. Spotting brown blood X3 days, worried about miscarriage due to having hx of miscarriage. Alert and oriented, breathing even and unlabored. No pain at this time.
[2024-05-11 09:40] LABS: MANUAL DIFF FLAG NO
[2024-05-11 09:44] LABS: Basophils Percent Auto 0.6 % (0-2); Eosinophils Percent Auto 0.8 % (0-4); Hemoglobin 11.9 g/dl (12.0-16.0); Imm Gran Abs Auto 0.01 X10*3/uL (0.00-0.03); Imm Gran Pct Auto 0.2 % (0.0-0.4); Lymphocytes Absolute Auto 1.2 X10*3/uL (1.2-4.9); Lymphocytes Percent Auto 24.4 % (20-40); Mean Corpuscular Hemoglobin 30.3 pg (27.0-33.0); Mean Corpuscular Volume 89.1 fL (80.0-98.0); Mean Platelet Volume 10.1 fL (9.4-12.3); Monocytes Absolute Auto 0.4 X10*3/uL (0.1-1.2); Monocytes Percent Auto 7.9 % (2-11); Neutrophils Absolute Auto 3.2 x10*3/uL (2.0-8.3); Neutrophils Percent Auto 66.1 % (45-73); Platelet Count 202 X10*3/uL (160-400); Red Blood Count 3.93 X10*6/uL (4.20-5.50); Red Cell Distribution Width 12.5 % (11.0-16.0); White Blood Count 4.8 X10*3/uL (4.8-10.8)
[2024-05-11 09:51] LABS: Prothrombin Time 12.6 SEC (11.1-13.3)
[2024-05-11 10:04] LABS: Alanine Aminotransferase 22 U/L (0-31); Albumin Level 4.5 g/dL (3.5-5.0); Alkaline Phosphatase 47 U/L (39-117); Anion Gap 13 (12-20); Aspartate Amino Transferase 21 U/L (5-31); Bilirubin Total 0.6 mg/dL (0.0-1.0); Blood Urea Nitrogen 15 mg/dL (9-16); Calcium 9.4 mg/dL (8.4-10.2); Carbon Dioxide 23 mmol/L (22-29); Chloride 106 mmol/L (96-108); Creatinine Clr Calc Pharmacy 87.7; Estimated Glomerular Filt Rate > 60; Glucose Random 88 mg/dL (60-115); HCG Quantitative 7426 mIU/mL; Potassium 4.2 mmol/L (3.3-5.1); Sodium 138 mmol/L (135-145); Total Protein 7.8 g/dL (6.5-8.0)
[2024-05-11 11:04] LABS: Bacterial Vaginosis PCR NEGATIVE (Negative); Candida Group PCR NOT DETECTED (Not Detect); Candida glab krusei PCR NOT DETECTED (Not Detect); Trichomonas vaginalis PCR NOT DETECTED (Not Detect)
[2024-05-11 11:15] LABS: Appearance Urine Clear; Color Urine Yellow; Glucose Urine UA Negative (Negative); Leukocyte Esterase Urine Negative (Negative); Nitrite Urine Negative (Negative); Specific Gravity - Urine 1.025 (1.005-1.025); Urine Blood Negative (Negative); Urine Ketones Negative (Negative); Urine Protein Negative (Neg-Trace)
[2024-05-11 11:36] LABS: CT PCR NOT DETECTED (Not Detect.); NG PCR NOT DETECTED (Not Detect.)
[2024-05-11 13:49] VITALS: BP 102/61; PULSE 101; RESP 20; TEMP 36.6; O2SAT 100
== END 2024-05-11 13:50 | disposition home or self-care (01) ==
PROVIDERS: Physician Assistant; Emergency Provider Emergency Medicine; PCP Nurse Practitioner Family
DX: O20.9 Hemorrhage in early pregnancy, unspecified (principal); N89.8 Other specified noninflammatory disorders of vagina; Z3A.01 Less than 8 weeks gestation of pregnancy; Z79.899 Other long term (current) drug therapy
CPT/HCPCS: 0352U; 36415; 76801; 76817; 80053; 81003; 83735; 84702; 85025; 85610; 86900; 86901; 87491; 87591; 99284

== ENCOUNTER 2025-09-17 13:24 | Emergency (ER) | payer OTHER, SELFPAY ==
--- NOTE | ~2025-09-17 | US_ITS ---
EXAMINATION: US OBSTETRICAL ULTRASOUND CLINICAL INFORMATION: Early , Abdominal pain. COMPARISON: 05/11/2024. LMP: 08/11/2025 Gestational age by maternal dates is 5 weeks and 2 days. Estimated date of delivery by maternal dates is 05/18/2026. TECHNIQUE: Ultrasound of the maternal pelvis is performed using transabdominal and transvaginal transducers. Transvaginal imaging is performed due to inadequate visualization transabdominally. M-mode Doppler is also performed. FINDINGS: There is a gestational sac in the fundal endometrium, with mean sac diameter of 0.93 cm, corresponding to estimated gestational age of 5 weeks and 4 days. No definite pole identified at this time. There is a normal yolk sac. No subchorionic hemorrhage or subchorionic abnormality identified. No definite heart rate identified although likely too early at this time. There is no myometrial abnormality identified. The cervix is normal in appearance. The uterus measures 9.7 x 2.8 x 4.7 cm. MATERNAL ADNEXA: The right maternal ovary measures 3.1 x 1.8 x 3.9 cm. There is a corpus luteal cyst measuring 1.7 x 1.2 x 1.9 cm. Normal sonographic appearance. The left maternal ovary measures 1.8 x 2.5 x 1.3 cm. Normal sonographic appearance. There is no significant maternal adnexal mass. No maternal pelvic ascites. US/US OB pelvic and transvaginal IMPRESSION: 1. Gestational sac identified within the fundal endometrium, with mean sac diameter of 0.93 cm, corresponding to estimated gestational age of 5 weeks and 4 days. Normal yolk sac seen, although no definitive pole is identified, likely too early to visualize. No evidence of subchorionic hemorrhage or complication. 2. No free pelvic fluid. 3. No adnexal masses. Normal ovaries bilaterally. Electronically signed by: Tan Verde MD 09/17/2025 04:45 PM [facility]
--- NOTE | 2025-09-17 13:52 | ED.GENADULT ---
HPI - General Adult General Chief complaint: GI Bleed Stated complaint: Abd Rectal Pain 9-10 Wks Preg Time Seen by Provider: 09/17/25 19:43 Related Data Previous Rx's ?Medication ?Instructions ?Recorded amoxicillin 875 mg-potassium 1 tab PO BID #14 tabs 09/17/25 clavulanate 125 mg tablet amoxicillin 875 mg-potassium 1 tab PO BID 7 days #14 tabs 09/17/25 clavulanate 125 mg tablet Allergies Allergy/AdvReac Type Severity Reaction Status Date / Time No Known Allergies Allergy Verified 09/17/25 13:56 [facility] Social History Social History Alcohol intake: never Advance Directives: No Advance Directives Information Provided: Yes Physical Exam ED Vital Signs: Vital Signs - 24 hr 09/17/25 13:53 09/17/25 20:00 Temperature 98.4 F 98.1 F Pulse Rate 91 102 H Respiratory Rate 18 18 Blood Pressure 108/59 L 104/65 Pulse Oximetry 100 97 Oxygen Delivery Method Room Air Room Air BMI result Body Mass Index 19.6 Course Course Course Narrative: Rapid medical examination performed in triage by Masha Pizano PA-C: Patient is a 30 year old assigned female at presenting to the emergency department with early and constipation for which she has been taking colace and is now leaking stool. Patient states that she also has abdominal pain. Detailed physical exam and review of systems are deferred to the photographic equipment technician. Labs ordered. Patient placed back in the waiting room pending room availability and results. Medical Decision Making Lab Data 09/17/25 14:45 09/17/25 14:45 Labs: Lab Results 09/17/25 Range/Units 14:45 WBC 7.4 (4.8-10.8) X10*3/uL RBC 3.94 L (4.20-5.50) X10*6/uL Hgb 11.7 L (12.0-16.0) g/dl Hct 35.6 L (37.0-47.0) % MCV 90.4 (80.0-98.0) fL MCH 29.7 (27.0-33.0) pg MCHC 32.9 (31.0-35.0) g/dl RDW 12.6 (11.0-16.0) % Plt Count 225 (160-400) X10*3/uL MPV 10.1 (9.4-12.3) fL Immature Gran % (Auto) 0.3 (0.0-0.4) % Neut % (Auto) 70.3 (45-73) % Lymph % (Auto) 20.9 (20-40) % [place] % (Auto) 7.7 (2-11) % Eos % (Auto) 0.4 (0-4) % Baso % (Auto) 0.4 (0-2) % Lymph # (Auto) 1.6 (1.2-4.9) X10*3/uL [place] # (Auto) 0.6 (0.1-1.2) X10*3/uL Eos # (Auto) 0.0 (0.0-0.4) X10*3/uL Baso # (Auto) 0.0 (0.0-0.2) X10*3/uL Abs Immat Gran (auto) 0.02 (0.00-0.03) X10*3/uL Absolute Neuts (auto) 5.2 (2.0-8.3) x10*3/uL Absolute Nucleated RBC 0.000 (0.0-0.012) X10*3/uL Nucleated RBC % (auto) 0.0 (0.0-0.2) /100WBC Sodium 137 (135-145) mmol/L Potassium 4.0 (3.3-5.1) mmol/L Chloride 105 (96-108) mmol/L Carbon Dioxide 24 (22-29) mmol/L Anion Gap 12 (12-20) BUN 15 (9-16) mg/dL Creatinine 0.75 (0.5-1.4) mg/dL Estim Creat Clear Calc 92.4 Estimated GFR > 60 Random Glucose 86 (60-115) mg/dL Calcium 9.9 (8.4-10.2) mg/dL Magnesium 2.1 (1.6-2.6) mg/dL Total Bilirubin 0.7 (0.0-1.0) mg/dL AST 22 (5-31) U/L ALT 23 (0-31) U/L Alkaline Phosphatase 52 (39-117) U/L Total Protein 7.6 (6.5-8.0) g/dL Albumin 4.7 (3.5-5.0) g/dL Beta HCG, Quant 59274 mIU/mL Discharge Plan Discharge Clinical Impression: Abby-rectal abscess, Patient Disposition: Home, Self-Care Instructions: (ED), Abscess (ED) Prescriptions: New amoxicillin-pot clavulanate 875-125 mg tablet 1 tab PO BID Qty: 14 0RF amoxicillin-pot clavulanate 875-125 mg tablet 1 tab PO BID 7 Days Qty: 14 0RF Referrals: Isabelle Tellez NP [Primary Care Provider, Internal Medicine] Referral Note: Follow-up with your OBGYN on Saturday. Win Nair MD [Physician, General Surgery] - 09/20/25 Print Language: Haitian
[2025-09-17 13:53] VITALS: BP 108/59; PULSE 91; RESP 18; TEMP 36.9; O2SAT 100; BMI 19.6
[2025-09-17 14:50] LABS: MANUAL DIFF FLAG NO
[2025-09-17 14:53] LABS: Hematocrit 35.6 % (37.0-47.0); Hemoglobin 11.7 g/dl (12.0-16.0); Imm Gran Abs Auto 0.02 X10*3/uL (0.00-0.03); Imm Gran Pct Auto 0.3 % (0.0-0.4); Lymphocytes Absolute Auto 1.6 X10*3/uL (1.2-4.9); Mean Corpuscular HGB Conc 32.9 g/dl (31.0-35.0); Mean Corpuscular Hemoglobin 29.7 pg (27.0-33.0); Mean Corpuscular Volume 90.4 fL (80.0-98.0); NRBC Abs Auto 0.000 X10*3/uL (0.0-0.012); NRBC Pct Auto 0.0 /100WBC (0.0-0.2); Platelet Count 225 X10*3/uL (160-400); Red Blood Count 3.94 X10*6/uL (4.20-5.50); White Blood Count 7.4 X10*3/uL (4.8-10.8)
[2025-09-17 15:23] LABS: Alanine Aminotransferase 23 U/L (0-31); Albumin Level 4.7 g/dL (3.5-5.0); Alkaline Phosphatase 52 U/L (39-117); Anion Gap 12 (12-20); Aspartate Amino Transferase 22 U/L (5-31); Blood Urea Nitrogen 15 mg/dL (9-16); Calcium 9.9 mg/dL (8.4-10.2); Carbon Dioxide 24 mmol/L (22-29); Chloride 105 mmol/L (96-108); Creatinine Clr Calc Pharmacy 92.4; Estimated Glomerular Filt Rate > 60; Magnesium 2.1 mg/dL (1.6-2.6); Potassium 4.0 mmol/L (3.3-5.1); Sodium 137 mmol/L (135-145); Total Protein 7.6 g/dL (6.5-8.0)
--- NOTE | 2025-09-17 19:58 | ED.GENADULT ---
HPI - General Adult General Chief complaint: GI Bleed Stated complaint: Abd Rectal Pain 9-10 Wks Preg Time Seen by Provider: 09/17/25 19:43 History of Present Illness HPI narrative: Patient is a 30-year-old female presented today with having last menstrual period in June. Patient had a ovulation calendar she thinks she ovulated on July 19. Complaining of having mild lower abdominal pain. Patient from home. Home test was positive. In addition patient has history of known hemorrhoids. Also noted hard stool now covered with blood. Having pain in her rectal area. Patient is from spine. There is no fever no chills. There is no diaphoresis. She had 2 miscarriages in the past. Normally gets [facility] by [facility]. Unsure about her blood type. Related Data Home Medications ?Medication ?Instructions ?Recorded ?Confirmed No Known Home Meds 11/14/23 11/14/23 Allergies Allergy/AdvReac Type Severity Reaction Status Date / Time No Known Allergies Allergy Verified 09/17/25 13:56 Review of Systems Review of Systems: Positive lower abdominal pain positive rectal pain positive history of hemorrhoid Yes all other systems are reviewed and are negative [facility] Social History Social History Alcohol intake: never Advance Directives: No Advance Directives Information Provided: Yes Physical Exam ED Exam Exam: Appearance: Alert. Oriented X3. No acute distress. Eyes: Pupils equal, round and reactive to light. ENT: Pharynx normal. Neck: Normal inspection. Neck supple. No lymph nodes noted. No crepitus CVS: Normal heart rate and rhythm. Pulses normal. Normal S1 and S2 Respiratory: No respiratory distress. Breath sounds normal. No Wheezing. No rales Abdomen: Soft and nontender. No rigidity. No distention. good BS x4 Skin: Skin warm and dry. Normal skin color. Normal skin turgor. Extremities: No lower extremity edema. Neurovascular intact to all extremities. No Lacerations. No Rash Neuro: Oriented X 3. No motor deficit. No sensory deficit. Moving all extermities. No slurred speech Vital Signs: Vital Signs - 24 hr 09/17/25 13:53 09/17/25 20:00 Temperature 98.4 F 98.1 F Pulse Rate 91 102 H Respiratory Rate 18 18 Blood Pressure 108/59 L 104/65 Pulse Oximetry 100 97 Oxygen Delivery Method Room Air Room Air BMI result Body Mass Index 19.6 Medical Decision Making Medical Decision Making MDM Narrative: I reviewed patient's previous labs. Patient's blood type is A positive. An ultrasound was done. The ultrasound results shows an intrauterine with a positive yolk sac noted approximately 5 weeks. This did not correspond perfectly with her menstruation but unlikely for patient to have an ectopic given at positive yolk sac was noted. Patient will require close follow-up on an outpatient basis her blood type is A positive. We did a rectal exam with nurse Adela present. Tense outpatient has an area of fluctuance between the vaginal and the rectal area closer to the rectal and. There is no redness noted. There is some tenderness in the area. There is no hemorrhoids noted. I discussed this finding with the surgeon on-call Dr. Nair. Will start patient on Augmentin. Have patient closely follow-up on an outpatient basis as patient has a normal white count. Well appearance. A dose of Augmentin was given. Discussed with patient the need for close follow-up to take food with the Augmentin. Currently in stable condition. Will also need follow-up for the abdominal pain. Patient's test was positive positive yolk sac unlikely to have an ectopic . Patient has an OBGYN appointment on Saturday. Differential Diagnosis Differential Diagnoses: The differential diagnosis associated with the presentation includes Admission/Observation Consideration of admission/observation: Escalation of care including admission/observation considered Lab Data 09/17/25 14:45 09/17/25 14:45 Labs: Lab Results 09/17/25 Range/Units 14:45 WBC 7.4 (4.8-10.8) X10*3/uL RBC 3.94 L (4.20-5.50) X10*6/uL Hgb 11.7 L (12.0-16.0) g/dl Hct 35.6 L (37.0-47.0) % MCV 90.4 (80.0-98.0) fL MCH 29.7 (27.0-33.0) pg MCHC 32.9 (31.0-35.0) g/dl RDW 12.6 (11.0-16.0) % Plt Count 225 (160-400) X10*3/uL MPV 10.1 (9.4-12.3) fL Immature Gran % (Auto) 0.3 (0.0-0.4) % Neut % (Auto) 70.3 (45-73) % Lymph % (Auto) 20.9 (20-40) % [place] % (Auto) 7.7 (2-11) % Eos % (Auto) 0.4 (0-4) % Baso % (Auto) 0.4 (0-2) % Lymph # (Auto) 1.6 (1.2-4.9) X10*3/uL [place] # (Auto) 0.6 (0.1-1.2) X10*3/uL Eos # (Auto) 0.0 (0.0-0.4) X10*3/uL Baso # (Auto) 0.0 (0.0-0.2) X10*3/uL Abs Immat Gran (auto) 0.02 (0.00-0.03) X10*3/uL Absolute Neuts (auto) 5.2 (2.0-8.3) x10*3/uL Absolute Nucleated RBC 0.000 (0.0-0.012) X10*3/uL Nucleated RBC % (auto) 0.0 (0.0-0.2) /100WBC Sodium 137 (135-145) mmol/L Potassium 4.0 (3.3-5.1) mmol/L Chloride 105 (96-108) mmol/L Carbon Dioxide 24 (22-29) mmol/L Anion Gap 12 (12-20) BUN 15 (9-16) mg/dL Creatinine 0.75 (0.5-1.4) mg/dL Estim Creat Clear Calc 92.4 Estimated GFR > 60 Random Glucose 86 (60-115) mg/dL Calcium 9.9 (8.4-10.2) mg/dL Magnesium 2.1 (1.6-2.6) mg/dL Total Bilirubin 0.7 (0.0-1.0) mg/dL AST 22 (5-31) U/L ALT 23 (0-31) U/L Alkaline Phosphatase 52 (39-117) U/L Total Protein 7.6 (6.5-8.0) g/dL Albumin 4.7 (3.5-5.0) g/dL Beta HCG, Quant 94824 mIU/mL Independent Interpretation I performed an independent interpretation of an: Ultrasound (Positive IUP) Radiology Impression Discussion of test interpretation with radiology: I have reviewed the radiologist's reading. Social Determinants Patient?s care significantly limited by Social Determinants of Health including: Problems related to primary support group Discharge Plan Discharge Clinical Impression: Abby-rectal abscess, Patient Disposition: Home, Self-Care Instructions: Abscess (ED), (ED) Prescriptions: No Action No Known Home Meds Referrals: iWn Nair MD [Physician, General Surgery] - 09/20/25 Isabelle Tellez NP [Primary Care Provider, Internal Medicine] Referral Note: Follow-up with your OBGYN on Saturday. Print Language: Mozambican
[2025-09-17 20:00] VITALS: BP 104/65; PULSE 102; RESP 18; TEMP 36.7; O2SAT 97
[2025-09-17 21:05] VITALS: BP 104/65; PULSE 102; RESP 18; TEMP 36.7; O2SAT 97
== END 2025-09-17 22:21 | disposition home or self-care (01) ==
PROVIDERS: Physician Assistant Medical; Emergency Provider Emergency Medicine Emergency Medical Services; PCP Nurse Practitioner Family
DX: O99.611 Diseases of the digestive system complicating pregnancy, first trimester (principal); K61.1 Rectal abscess; Z3A.01 Less than 8 weeks gestation of pregnancy
CPT/HCPCS: 36415; 76801; 76817; 80053; 83735; 84702; 85025; 99284

== ENCOUNTER → 2025-09-17 13:54 | Outpatient (BNV) | payer OTHER, SELFPAY | PROVIDERS: PCP Nurse Practitioner Family; Visit Provider Radiology Diagnostic Radiology | DX: O26.891 Other specified pregnancy related conditions, first trimester (principal); R10.9 Unspecified abdominal pain; Z3A.01 Less than 8 weeks gestation of pregnancy | CPT/HCPCS: 76801; 76817 ==

== ENCOUNTER 2025-09-29 09:09 | Outpatient (AMB) | payer OTHER, SELFPAY ==
--- OUTSIDE RECORDS SUMMARY | 2025-09-28 23:59 | XMS_ITS | Continuity of Care Document ---
Author Organization [facility] Address [address], [address] [place] [address]- Care Team Providers Care Edge Dyer Name Role Phone Rosalinda STRONG, Isabelle Carias Primary Care Physician Encounter [facility] Date(s): 09/21/25 - 09/28/25 [facility] [address], [address] [place] [address]- Attending Physician: Nereida Aguilar MD Referring Physician: Kaylee Red CNM Encounter Type: Office Visit Allergies, Adverse Reactions, Alerts No Known Medication Allergies Medications Multivitamin Tablet 0 Refills, Maintenance, 05/11/24 3:04:00 PM EDT, Partial fill upon patient request if the prescription is for a schedule II opioid drug. Start Date: 05/11/24 Status: Ordered Medication Dispense Status: Completed Total Allowed Fills: 1 Fills Dispensed: 0 Problem List Condition Confirmation Course Effective Dates Status Health St atus Informant Depression Confirmed Active Personal history of cervical dysplasia Confirmed Active PTSD (post-traumatic stress disorder) Confirmed Active Social History Social History Type Response Smoking Status Never (less than 100 in lifetime) entered on: 05/11/24 Sexual Orientation Self described orien tation: ; Straight or heterosexual Sex Sex Representation Female (finding) Imaging * Event Display: PDC OB Dating * Event Display: PDC OB Dating Authored Date: [id number] Obstetrics Report Signed Final 09/21/2025 1:46 PM Patient Info ID: [id number] LETITIA Mcallisetr: Vernell PERDOMO 09/21/2025 11:31 AM FMRN: Name: Date: [id number] (30 y) (F) Performed By Attending: Karson Robert MD Referred By: Kaylee eRd CNM Performed By: Marycruz Mustafa RDMS Ref Address: [facility] CANE STRIPPER Exam Location:[address] Orders ------ Service(s) [place] [address] 02160 P Limited OB (use once only) 37881 80584 P Indications Code Z34.90 Unsure dates Z36.87 OB History : 3 SAB: 2 Evaluation Number Of Fetuses: 1 Preg. Location: In utero Yolk Sac: 4.3 Cardiac Activity: Not seen Amniotic Fluid OMAR FV: No GS seen Gestational Age Best: 6w 3d Det. By: U/S G S OSCAR: 05/14/26 (09/21/25) Biometry -------- GS: 14.9 mm G. Age: 6w 3d OSCAR: 05/14/2026 Cervix Uterus Adnexa Right Ovary Appears normal, corpus luteum on left ovary Left Ovary Appears normal Comment Vaginal scanning was done. Comments -------- An intrauterine gestational sac is seen, but embryonic cardiac activity or pole not seen. This may be consistent with early or with early loss. Consider repeating an ultrasound in 2 weeks to document cardiac activity & gestational age. Karson Robert MD Electronically Signed Final Report 09/21/2025 1:46 PM * Event Display: PDC OB Dating Authored Date: Please click on pdf link to open report Patient Care team information Care Team Personnel Name: Rosalinda STRONG, Isabelle Carias Position: Reference Physician Member Role: PCP Address: [address] [place] [address], [place] [address] Telecom: Care Team Related Persons Name: JARAD CALVILLO Insurance Providers Guarantor name: [employer] Health Plan Information #: 1 Payer: WIL CORONADO Payer Identifier: [employer] Member Number: [id number] Group Number: [id number] Subscriber Identifier: [id number] Relationship to Subscriber: self Coverage Type: NA Coverage Verification Date: [employer] Telecom: [employer] Address:
[2025-09-29 09:17] VITALS: BP 108/54; PULSE 79; BMI 19.5
--- NOTE | 2025-09-29 09:17 | MHC.OFFVIS ---
Vital Signs 09/29/25 09:17 Height 5 ft 5 in Weight 117 lb BMI 19.5 BP 108/54 L Blood Pressure Location Rt brachial Position Sitting Pulse 79 Intake Visit Reasons: Abby-rectal abscess Intake Note: Patient is seen in office for ER follow up visit, following on perirectal abscess. Pt c/o: painful, inflamed. Reports normal BM. Completed Amoxicillin 7d course. Of note: , second US scheduled for October 12. Imaging: US OB pelvic & transvaginal~ 09-17-2025 Nanny Caregiver Required: No Barrel Lathe Operator Outside: Barrel Lathe Operator Outside Present Accompanied by: Self / Same As Patient Allergies No Known Allergies Allergy (Verified 09/29/25 09:23) Medication List - Last Reconciled 09/29/25 by Nikita Angel MD amoxicillin-pot clavulanate 500-125 mg (Augmentin) 1 tab PO Q12H PNV [id number] 90 mg iron- 1 mg-200 mg 1 cap PO DAILY HPI Comments Details: 30-year-old lady seen recently in the ER with a perianal abscess presents today for follow-up. Patient reports that she is doing ?much better. ?. She is on antibiotic therapy and tolerating it well. She denies any fevers chills nausea or vomiting. She might have had some perianal discharge but she does not really know. She has not seen blood in the toilet or when wiping. She does have a problem with constipation and she feels that that really instigated her current issue. She denies any history of trauma instrumentation or surgery to the region. [facility] Social History (Updated 09/29/25 @ 09:25 by JEN Weldon) Alcohol intake: never Patient Tobacco Use Status: Never used Tobacco Review of Systems Const All systems reviewed & are unremarkable except as noted in HPI and below Physical Exam Vital Signs: Last Vital Signs Pulse 79 09/29/25 09:17 BP 108/54 L 09/29/25 09:17 BMI result Body Mass Index 19.5 Const General: cooperative, healthy appearing and comfortable HEENT Head: Yes normal to inspection Ears: hearing grossly normal bilaterally General nose exam: Normal external nose present Face and sinus: Yes normal facial exam Mouth: Normal oral and palatal mucosa present Eyes Pupils: Equal, round and reactive pupils present EOM: EOMs intact bilaterally Neck Neck: Yes normal visual inspection Chest Chest palpation & inspection: normal inspection of the chest Resp Effort & Inspection: normal respiratory effort and able to speak in complete sentences Cardio Rate: regular rate Rhythm: regular rhythm GI Inspection: Yes normal to inspection Female genitals images:  1. 1 cm round cystic structure at 12:00 with respect to the anus on the anal verge. No erythema edema or discharge. Exquisitely tender. No discharge noted from the anus or vagina. The rest of the perineum appears normal. Neuro Cranial nerves: Yes Equal, round and reactive pupils present Assessment & Plan Assessment & Plan (1) Perianal abscess: Code(s): K61.0 - Anal abscess Category: Medical Plan: I told the patient that adequate assessment would only be available with anesthesia and anoscopy. Her clinical trajectory has been positive and she is adamant that she is feeling better. She declined any sort of further investigation or instrumentation and I did not feel the need to pursue it as she does seem to be improving. I encouraged her to stay on antibiotic therapy, perform Sitz baths twice a day and see us back in 2 weeks. She said she was happy with this plan. She also agreed to contact us should she have any questions or problems. Medications: New amoxicillin-pot clavulanate 500-125 mg (Augmentin) 1 tab PO Q12H 30 tabs 0RF Coding Level of Care Code New Pt Level 3 (02937) Diagnoses Perianal abscess K61.0 Time Spent (min) 30 Comment Record review patient visit and coordination of care time
== END 2025-09-29 09:40 | disposition home or self-care (01) ==
LOC: HO.HGS 09:09
PROVIDERS: PCP Nurse Practitioner Family; Visit Provider Surgery
DX: K61.0 Anal abscess (principal)
CPT/HCPCS: 99203

== ENCOUNTER → 2025-09-29 09:09 | Outpatient (BNVA) | payer OTHER, SELFPAY | PROVIDERS: PCP Nurse Practitioner Family; Visit Provider Surgery | DX: O99.619 Diseases of the digestive system complicating pregnancy, unspecified trimester (principal); K61.0 Anal abscess; Z3A.00 Weeks of gestation of pregnancy not specified | CPT/HCPCS: 99202 ==